=== PATIENT | male | born 1985 | race Caucasian/White ===

== ENCOUNTER 2020-06-29 23:22 | Emergency (ER) | payer OTHER ==
[~2020-06-29] VITALS: Ht 170.2 cm; Wt 65.3 kg
[2020-06-29 23:29] VITALS: Ht 170.2 cm; Wt 65.3 kg
[2020-06-30 00:58] LABS: BASOPHIL % 0.5 % (0.2-1.5); PLATELET COUNT 211 x10^3mcL (152-348); RED CELL DISTRIBUTION WIDTH 12.5 % (12.1-16.2)
[2020-06-30 01:01] LABS: rbc morphology (normal/abnorm) NORMAL (NORMAL)
[2020-06-30 01:28] LABS: CALCIUM 9.3 mg/dL (8.5-10.1); CARBON DIOXIDE 24.1 mmol/L (21-32); CHLORIDE SERUM 104 mmol/L (98-107); CREATININE SERUM 1.1 mg/dL (0.7-1.3); GFR1 > 60 mL/min; GLUCOSE SERUM 110 mg/dL (74-106); SODIUM SERUM 142 mmol/L (136-145)
[2020-06-30 01:32] LABS: ALBUMIN 4.2 g/dL (3.4-5.0); ALKALINE PHOSPHATASE 68 U/L (46-116); ALT/SGPT 70 U/L (16-63); AST/SGOT 62 U/L (15-37); BILIRUBIN TOTAL 0.64 mg/dL (0.20-1.00); TOTAL PROTEIN, SERUM 7.4 g/dL (6.4-8.2)
[2020-06-30 02:15] VITALS: BP 127/71
== END 2020-06-30 02:15 | disposition home or self-care (01) ==
LOC: ED 23:22
PROVIDERS: Student in an Organized Health Care Education/Training Program
DX: N20.2 Calculus of kidney with calculus of ureter (principal); E87.6 Hypokalemia
CPT/HCPCS: J1885; J2270; J7030